=== PATIENT | female | born 1990 | race Caucasian/White ===

== ENCOUNTER 2018-08-09 10:59 | Emergency (ER) | payer BC ==
[~2018-08-09] VITALS: Ht 162.6 cm; Wt 83.9 kg
[~2018-08-09 10:59] MED LIST: DEPO-PROVE150 MG/1 M IM
[2018-08-09] MEDS ORDERED: BUPROPION XL300 MG PO (11:12)
[2018-08-09] MEDS ORDERED: ONDANSETRON ODT8 MG PO (12:38)
== END 2018-08-09 13:15 | disposition home or self-care (01) ==
LOC: ED 10:59
DX: K52.9 Noninfective gastroenteritis and colitis, unspecified (principal); F41.9 Anxiety disorder, unspecified; Z90.89 Acquired absence of other organs; Z88.7 Allergy status to serum and vaccine; Z79.899 Other long term (current) drug therapy
CPT/HCPCS: 80053; 81001; 85025; 96361; 96374; 96375; 99284-25; J2405; J2765; J7030